=== PATIENT | male | born 1970 | race Caucasian/White ===

== ENCOUNTER 2018-10-08 11:44 | Day surgery (SDC) | payer OTHER ==
[~2018-10-08 11:44] MED LIST: CEFAZOLIN 1 GM INJ; CEFAZOLIN 2 GM/50 ML (PMX) 50 ML IVPB
[2018-10-08] MEDS ORDERED: SUCCINYLCHOLINE CHLORIDE 100 MG/5 ML SYG IV (14:24)
[2018-10-08] MEDS ORDERED: LIDOCAINE 2% (SDV) 5 ML INJ (14:24)
[2018-10-08] MEDS ORDERED: GLYCOPYRROLATE 0.4 MG INJ ×2 (14:24→17:19)
[2018-10-08] MEDS ORDERED: MEPERIDINE 100 MG INJ (14:24)
[2018-10-08] MEDS ORDERED: PROPOFOL 20 ML (14:24)
[2018-10-08] MEDS ORDERED: ROCURONIUM 50 MG INJ (14:24)
[2018-10-08] MEDS ORDERED: NEOSTIGMINE 3 MG/3 ML SYRINGE (14:24)
[2018-10-08] MEDS ORDERED: MEPERIDINE 25 MG INJ IV (15:00)
[2018-10-08] MEDS ORDERED: HYDROmorphONE 1 MG/5 ML IV SYRINGE IV ×3 (15:00)
[2018-10-08] MEDS ORDERED: ONDANSETRON 4 MG INJ IV (15:00)
[2018-10-08] MEDS ORDERED: DIPHENHYDRAMINE 50 MG INJ IV (15:00)
[2018-10-08] MEDS ORDERED: FENTAnyl 50 MCG/ML VIAL IV ×2 (15:00)
[2018-10-08] MEDS ORDERED: OXYCODONE/ACETAMINOPHEN (5/325) TAB PO (15:00)
[2018-10-08] MEDS ORDERED: METOCLOPRAMIDE 10 MG INJ IV (15:00)
[2018-10-08] MEDS ORDERED: MIDAZOLAM 1 MG/ML 2 ML INJ IV (15:00)
[2018-10-08] MEDS: LIDOCAINE 1%/EPI (1:100,000) (MDV) 20 ML (15:32)
[2018-10-08] MEDS: BUPIVACAINE 0.25% (MPF) 30 ML INJ (15:32)
[2018-10-08] MEDS: POLYMYXIN/BACITRACIN 1L IRRIG (15:33)
[2018-10-08] MEDS ORDERED: KETOROLAC 30 MG INJ (17:19)
[2018-10-08] MEDS: FENTAnyl 50 MCG/ML VIAL IV (17:45)
[2018-10-08] MEDS: OXYCODONE/ACETAMINOPHEN (5/325) TAB PO (18:42)
== END 2018-10-08 19:00 | disposition home or self-care (01) ==
LOC: SDS 11:44
DX: K40.20 Bilateral inguinal hernia, without obstruction or gangrene, not specified as recurrent (principal); Z87.891 Personal history of nicotine dependence
CPT/HCPCS: 49505